=== PATIENT | male | born 1930 | race Caucasian/White ===

== ENCOUNTER 2017-05-28 14:15 | Outpatient (CLI) | payer MEDICARE ==
[~2017-05-28 14:15] MED LIST: CARDURA4 MG ORAL; [UNRECOGNIZED DRUG - OTHER] MC
--- NOTE | 2017-05-28 16:46 | Diagnostic Imaging Report ---
Indication: COUGH Technique: Two views of the chest Comparison: 12/19/2013 Findings: Lungs and pleural spaces are clear. Stable eventration or elevation right hemidiaphragm, with partial anterior hepatic colonic interposition. The heart size is normal. Aorta is tortuous and calcified. There are degenerative changes of the thoracic spine. Right shoulder hardware is again demonstrated. No significant interim change Impression: No acute process. Findings as noted
== END 2017-05-28 16:15 | disposition home or self-care (01) ==
LOC: RAD 14:15 → LAB 14:30 → RAD 16:15
DX: R05 Cough (principal)
CPT/HCPCS: 71020

== ENCOUNTER 2019-04-17 11:51 | Emergency (ER) | payer MEDICARE ==
[~2019-04-17] VITALS: Ht 160 cm; Wt 68.0 kg
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
[2019-04-17] MEDS ORDERED: Morphine Sulfate 2mg/ml Inj(IV/IM USE ONLY) IVP ONE (13:00)
--- NOTE | 2019-04-17 13:01 | Diagnostic Imaging Report ---
Indications: Altered mental status and vision changes Technique: Spiral acquisitions obtained through the brain. Angled axial and coronal 5 x 5 mm slices were reconstructed. Total dose length product 1363 mGycm. CTDI vol(s) 62 mGy. Dose reduction achieved using automated exposure control Comparison: None. Findings: In the high right posterior parietal lobe, there is an intraparenchymal hematoma. This measures 3.5 cm transverse by 2.8 cm AP by 4.3 cm craniocaudad. There is surrounding edema. There is some subarachnoid hemorrhage within the adjacent sulci. There is also at evidence of leakage of blood into the right lateral ventricle, with blood filling the posterior body as well as the atrium and occipital horn of the right lateral ventricle. There is local mass effect, manifested by attenuation of the adjacent sulci. No midline shift is evident. No other acute hemorrhage. There is age-related central and cortical volume loss. Normal echevarria-white differentiation. The calvarium is intact. The mastoids are clear. There is evidence of prior bilateral cataract surgery. Visualized sinuses are clear. Impression: Positive for acute right parietal 4.3 x 3.5 x 2.8 cm intraparenchymal hematoma. There is evidence of rupture into the extra-axial CSF space, manifested by small amount of adjacent subarachnoid hemorrhage, as well as evidence of rupture into the ventricular system, manifested by high attenuation blood within the atrium,, occipital horn, and posterior body of the right lateral ventricle. There is associated surrounding edema. There is evidence of local mass effect, manifested by attenuation of its lateral sulci. No midline shift Age-related volume loss Critical value findings discussed by phone with Dr. Mccallum in the emergency room at the time of interpretation The CT scanner at [facility] is accredited by the [employer] and the scans are performed using protocols designed to limit radiation exposure to as low as reasonably achievable to attain images of sufficient resolution adequate for diagnostic evaluation.
[2019-04-17 13:07] LABS: ANION GAP 7 mmol/L (5-15); BLOOD UREA NITROGEN 17 mg/dL (7-18); CALCIUM 8.8 MG/DL (8.5-10.1); CARBON DIOXIDE 30 MMOL/L (21-32); CHLORIDE 105 MMOL/L (98-107); SODIUM 142 MMOL/L (136-145)
[2019-04-17 13:09] LABS: BASOPHILS % (AUTO) 1.3 % (0.0-2.0); EOSINOPHILS % (AUTO) 0.6 % (0.0-3.0); HEMATOCRIT 44.2 % (42.0-52.0); HEMOGLOBIN 14.6 G/DL (14.2-18.0); LYMPHOCYTES % (AUTO) 10.3 % (20.0-45.0); MEAN CORPUSCULAR VOLUME 90 FL (80-99); MONOCYTES % (AUTO) 8.7 % (1.0-10.0); NEUTROPHILS % (AUTO) 79.2 % (45.0-75.0); PLATELET COUNT 207 K/UL (150-450); RED BLOOD COUNT 4.89 M/UL (4.70-6.10); RED CELL DISTRIBUTION WIDTH 12.2 % (11.6-14.8); WHITE BLOOD COUNT 4.8 K/UL (4.8-10.8)
[2019-04-17] MEDS ORDERED: levETIRAcetam 1,000mg/NS100ml 100 ML IVPB ONE (13:15)
[2019-04-17] MEDS ORDERED: Dexamethasone 4mg/ml vial IVP ONE (13:15)
[2019-04-17] MEDS ORDERED: Acetaminophen 500mg (ES) tab ORAL ONE (13:15)
[2019-04-17 13:21] LABS: ALANINE AMINOTRANSFERASE 24 U/L (12-78); ALBUMIN/GLOBULIN RATIO 1.1 (1.0-2.7); ALKALINE PHOSPHATASE 53 U/L (46-116); ASPARTATE AMINO TRANSFERASE 20 U/L (15-37); BILIRUBIN,TOTAL 0.5 MG/DL (0.2-1.0)
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
[2019-04-17 13:42] VITALS: BP 182/81
[2019-04-17 14:27] LABS: APPEARANCE,URINE CLEAR; BILIRUBIN, URINE NEGATIVE (NEGATIVE); COLOR,URINE PALE YELLOW; GLUCOSE, URINE (UA) NEGATIVE (NEGATIVE); KETONES,URINE NEGATIVE (NEGATIVE); LEUKOCYTE ESTERASE ,URINE 1+ (NEGATIVE); NITRITE,URINE NEGATIVE (NEGATIVE); PH,URINE 8 (4.5-8.0); PROTEIN,URINE 2+ (NEGATIVE); UROBILINOGEN,URINE NORMAL MG/DL (0.0-1.0)
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
[2019-04-17 14:45] VITALS: BP 158/63
== END 2019-04-17 14:45 | disposition short-term general hospital (02) ==
LOC: EMR 12:47
DX: I61.9 Nontraumatic intracerebral hemorrhage, unspecified (principal); M54.2 Cervicalgia; R51 Headache; Z85.038 Personal history of other malignant neoplasm of large intestine; Z85.828 Personal history of other malignant neoplasm of skin; Z96.642 Presence of left artificial hip joint; Z88.6 Allergy status to analgesic agent; V49.9XXA Car occupant (driver) (passenger) injured in unspecified traffic accident, initial encounter; Y92.410 Unspecified street and highway as the place of occurrence of the external cause
CPT/HCPCS: 36415; 70450; 72125; 80053; 81001; 84443; 84484; 85025; 85610; 85730; 96374; 96375; 99284; J1953; J2405